=== PATIENT | male | born 2000 | race Two or more races ===

== ENCOUNTER 2024-04-25 19:50 | Emergency (ER) | payer OTHER ==
[~2024-04-25] VITALS: Ht 180.3 cm; Wt 88.5 kg
[2024-04-25] MEDS ORDERED: ACETAMINOPHEN 500 MG GEL..CAP PO ONE (20:18)
[2024-04-25 23:58] LABS: HEMATOCRIT 44.1 % (39.0-48.0); MEAN CELL VOLUME 84.4 fL (80.0-100.00); MEAN CORPUSCULAR HEMOGLOBIN 28.7 pg (27.00-32.0); PLATELET COUNT 253 K/uL (150-450); RED BLOOD COUNT 5.22 M/uL (4.00-6.00); RED CELL DISTRIBUTION WIDTH 13.6 % (11.5-14.5)
[2024-04-26] MEDS ORDERED: OSEL75CA PO (03:26)
[2024-04-26] MEDS ORDERED: ZYRTEC10 M3 PO (03:26)
== END 2024-04-26 03:38 ==
LOC: ER 19:53
PROVIDERS: Preventive Medicine Public Health & General Preventive Medicine
DX: J10.1 Influenza due to other identified influenza virus with other respiratory manifestations (principal); Z20.822 Contact with and (suspected) exposure to COVID-19

== ENCOUNTER 2024-11-27 01:42 | Emergency (ER) | payer OTHER ==
[~2024-11-27] VITALS: Ht 180.3 cm; Wt 82.1 kg
[~2024-11-27 01:42] MED LIST: OSEL75CA PO; ZYRTEC10 M3 PO
[2024-11-27 04:06] LABS: BASO % 0.5 % (0.1-1.2); EOS # 0.20 (0.04-0.54); EOS % 2.5 % (0.7-7.0); LYMPH # 2.13 (1.18-3.74); LYMPH % 26.2 % (19.3-53.1); MEAN PLATELET VOLUME 8.70 fl (9.4-12.4); MONO # 1.14 (0.24-0.82); MONO % 14.0 % (4.7-12.5); NEUT # 4.59 (1.56-6.13); NEUT % 56.6 % (34.0-71.1); RED CELL DISTRIBUTION WIDTH 12.4 % (11.6-14.4)
[2024-11-27 04:23] LABS: COVID-19 AG POSITIVE (NEGATIVE)
== END 2024-11-27 03:48 | disposition home or self-care (01) ==
LOC: ER 01:42 → EMR PED 02:25
DX: U07.1 COVID-19 (principal); J10.1 Influenza due to other identified influenza virus with other respiratory manifestations